=== PATIENT | female | born 1965 | race Caucasian/White ===

== ENCOUNTER 2016-05-27 10:03 | Emergency (ER) | payer BC ==
[2016-05-27 10:32] VITALS: BP 103/60
--- NOTE | 2016-05-27 11:23 | RAD ---
INDICATION: Cough, wheezing, chest pain, fever. History of tobacco use. COMPARISON: December 14, 2013 TECHNIQUE: Dual energy PA and routine lateral views of the chest were obtained. REPORT: Elevated lung volumes. No alveolar consolidation, focal pulmonary lesion, pleural effusion, pneumothorax. The heart, pulmonary vasculature, and mediastinal contours are unremarkable. Unchanged mild RIGHT convex curve of the thoracic spine centered at the mid to distal segment. No suspicious focal osseous lesions evident. IMPRESSION: No evidence for pneumonia. Mildly elevated lung volumes suggest potential obstructive lung disease.
--- NOTE | 2016-05-27 11:57 | UC ---
Respiratory Complaint HPI - HPI Summary HPI Summary: FOUR DAYS OF COUGH CONGESTION SORE THROAT, HAD BEEN TRAVELING THE WEEK BEFORE. THREE DAYS AGO DEVELOPED FEVER. CONCERN FOR FLU. ALSO CHEST CONGESTION AND WHEEZING HAVE BEEN WORSENING. NO LEG PAIN. NO SHORTNESS OF BREATH OR CHEST PAIN. - History of Current Complaint Chief Complaint: UCRespiratory Stated Complaint: CHEST CONGESTION Time Seen by Provider: 05/27/16 10:33 Hx Obtained From: Patient Onset/Duration: Gradual Onset, Lasting Weeks, Still Present Severity Initially: Moderate Severity Currently: Moderate Pain Intensity: 0 Pain Scale Used: 0-10 Numeric Character: Cough: Nonproductive Aggravating Factors: Deep Breaths Associated Signs And Symptoms: Positive: Fever, Chills, Wheezing, URI, Nasal Congestion, Hoarseness. Negative: Pleuritic Chest Pain, Calf Pain, Calf Swelling - Risk Factors Pulmonary Embolism Risk Factors: Recent Travel, Smoking Cardiac Risk Factors: Negative Pseudomonas Risk Factors: Negative Tuberculosis Risk Factors: Negative - Allergies/Home Medications Allergies/Adverse Reactions: Allergies Allergy/AdvReac Type Severity Reaction Status Date / Time No Known Allergies Allergy Verified 02/07/13 13:13 PMH/Surg Hx/FS Hx/Imm Hx Previously Healthy: Yes Endocrine History Of: Reports: Thyroid Disease Denies: Diabetes Cardiovascular History Of: Denies: Cardiac Disorders, Hypertension, Pacemaker/ICD Respiratory History Of: Denies: COPD, Asthma GI/ History Of: Denies: Ulcer - Surgical History Surgical History: Yes Surgery Procedure, Year, and Place: THYROIDECTOMY - Family History Known Family History: Negative: Cardiac Disease, Respiratory Disease, Blood Disorder - Social History Occupation: Employed Full-time Lives: With Family Alcohol Use: Weekly Substance Use Type: None Smoking Status (MU): Former Smoker Review of Systems Constitutional: Negative Skin: Negative Eyes: Negative ENT: Sore Throat, Nasal Discharge Respiratory: Cough Cardiovascular: Negative Gastrointestinal: Negative Genitourinary: Negative Motor: Negative Neurovascular: Negative Musculoskeletal: Negative Neurological: Negative Psychological: Negative All Other Systems Reviewed And Are Negative: Yes Physical Exam Triage Information Reviewed: Yes Appearance: Well-Appearing, No Pain Distress, Well-Nourished Vital Signs: Initial Vital Signs Temp 99.7 F 05/27/16 10:28 Pulse 73 05/27/16 10:28 Resp 18 05/27/16 10:28 BP 103/60 05/27/16 10:28 Pulse Ox 100 05/27/16 10:28 Vital Signs Reviewed: Yes Eye Exam: Normal ENT: Positive: Pharynx normal, TM dull Dental Exam: Normal Neck exam: Normal Neck: Positive: Supple, Nontender, No Lymphadenopathy Respiratory: Positive: Chest non-tender, No respiratory distress, No accessory muscle use, Wheezing - FAINT Cardiovascular Exam: Normal Cardiovascular: Positive: RRR, No Murmur, Pulses Normal, Brisk Capillary Refill Abdominal Exam: Normal Abdomen Description: Positive: Nontender, No Organomegaly Musculoskeletal Exam: Normal Musculoskeletal: Positive: Strength Intact, ROM Intact, No Edema Neurological Exam: Normal Psychological Exam: Normal Psychological: Positive: Normal Response To Family Skin Exam: Normal UC Diagnostic Evaluation - Laboratory O2 Sat by Pulse Oximetry: 100 Respiratory Course/Dx - Differential Dx/Diagnosis Differential Diagnosis/HQI/PQRI: Asthma, Bronchitis, Sinusitis Provider Diagnoses: BRONCHITIS WITH BRONCHOSPASM Discharge - Discharge Plan Condition: Stable Disposition: HOME Prescriptions: Albuterol HFA INHALER* [Ventolin HFA Inhaler*] 1 - 2 puff INH Q4H PRN #1 mdi PRN Reason: Wheezing Benzonatate CAP* [Tessalon CAP*] 100 mg PO TID PRN #15 cap PRN Reason: Cough Patient Education Materials: Acute Bronchitis (ED), Bronchospasm (ED) Referrals: Jewel Driver MD [Primary Care Provider] -
== END 2016-05-27 11:49 | disposition home or self-care (01) ==
LOC: UCEAST 10:03
DX: J20.9 Acute bronchitis, unspecified (principal); Z87.891 Personal history of nicotine dependence
CPT/HCPCS: 71020; 87502; 99212; G0463